=== PATIENT | male | born 1975 | race Caucasian/White ===

== ENCOUNTER 2016-08-10 17:07 | Emergency (ER) | payer OTHER ==
--- NOTE | 2016-08-11 02:36 | ED DISCHARGE INSTRUCTIONS ---
Patient: LUCITA CHANCE General Instructions [facility] VisitID: [id number] [place] [address] 41y, M Registration Date/Time: 08/10/2016 Mood disorder (mild single manic episode with psychosis). INSTRUCTIONS Warnings: GENERAL WARNINGS: Return or contact your physician immediately if your condition worsens or changes unexpectedly, if not improving as expected, or if other problems arise. Specifically return if problem worsens. Follow-up: Follow up with your doctor in about three days even if well. Call for an appointment. Summary of care provided to patient and family. Understanding of the discharge instructions verbalized by patient. (Electronically signed by Sandi Anaya A.R.N.P. 08/10/2016 18:10)
--- NOTE | 2016-08-11 02:36 | ED DISCHARGE INSTRUCTIONS ---
Patient: LUCIAT CHANCE General Instructions [facility] VisitID: [id number] [place] [address] 41y, M Registration Date/Time: 08/10/2016 Mood disorder (mild single manic episode with psychosis). INSTRUCTIONS Warnings: GENERAL WARNINGS: Return or contact your physician immediately if your condition worsens or changes unexpectedly, if not improving as expected, or if other problems arise. Specifically return if problem worsens. Follow-up: Follow up with your doctor in about three days even if well. Call for an appointment. Summary of care provided to patient and family. Understanding of the discharge instructions verbalized by patient. (Electronically signed by Sandi Anaya A.R.N.P. 08/10/2016 18:10)
--- NOTE | 2016-08-11 02:36 | ED NURSING NOTES ---
Clinical Report - Nurses [address] [place] [address] 08/10/2016 17:08 [id number] Triage time 17:12 Aug 10 2016. Acuity: LEVEL 3. Chief Complaint: BIZARRE BEHAVIOR. Alert. No acute distress. GUY COMA SCORE: [place] Coma Scale: 15- eyes open spontaneously (4); best verbal response- oriented x 4 (5); best motor response- obeys commands (6). --17:30 Dunia Galvez R.N. 17:12 08/10/16. BP: 135/90. HR: 89. RR: 18. O2 saturation: 100%. Temp: 98.6 F. --17:30 Dunia Galvez R.N. 17:32 08/10/16. BREATHALYZER: Breathalyzer (0.00). --17:32 Meena Catherine R.N. Weight: 91.1 kg stated. Height/Length: 68 inches Per Patient. BMI: 30.5. --17:28 Dunia Galvez R.N. Medications Cialis Oral. --17:14 Dunia Galvez R.N. OxyCODONE HCl Oral 7.5, 3 x daily. --17:15 Dunia Galvez R.N. Adderall Oral (Tablet 30 mg) 1 tablet, 2x a day. --17:16 Dunia Galvez R.N. ClonazePAM Oral (Tablet Dispersible 1 mg) 1 tablet, 3x a day. --17:16 Dunia Galvez R.N. Mulitvitamin. --17:17 Dunia Galvez R.N. Testosterone Cypionate Intramuscular (Solution 200 mg/mL). --17:19 Dunia Galvez R.N. Allergies Methadone. --17:20 Dunia Galvez R.N. Penicillin. --17:20 Dunia Galvez R.N. History Arrived by EMS, and from a clinic (47). Historian: patient. The patient has had anxiety and sleeping difficulties, describes feelings of depression and has been confused. Has been feeling agitated. Denies having hallucinations. Treatment SEEING EYE DOG TRAINER: None. PAST MEDICAL HX: Psychiatric illness ("perfect" I was a science project). Immunizations: up-to-date. Denies current . SOCIAL HX: Current every day light tobacco smoker (cigarette)- less than 1/2 a pack per day. Occasional alcohol use. History of drug use: marijuana. Recently used drugs yesterday. No infectious disease exposure. SELF HARM ASSESSMENT: A self harm assessment was performed. The patient answered "no" to the question "Do you have thoughts of harming or killing yourself?". FALL RISK ASSESSMENT: Fall risk assessment completed. No fall risk identified. NUTRITIONAL RISK ASSESSMENT: The nutritional risk assessment revealed no deficiencies. FUNCTIONAL ASSESSMENT: Functional assessment: no impairments noted. LEARNING NEEDS ASSESSMENT: The learning needs assessment revealed no barriers. ABUSE ASSESSMENT: Abuse assessment: The patient was asked "Do you feel safe in your home?". SKIN INTEGRITY ASSESSMENT: Skin integrity risk assessment completed. No skin integrity risk identified. --17:30 Dunia Galvez R.N. PROBLEMS: Transgender. Contusion. Fall. Hypertension. Lung Disease. Tetanus Status. --17:21 Dunia Galvez R.N. ADDITIONAL SURGERIES: Dilatation & Curettage. Hysterectomy. Mastectomy. Oophorectomy. Tonsillectomy. --17:21 Dunia Galvez R.N. Interventions ID and allergy band on patient. --17:30 Dunia Galvez R.N. PHYSICAL ASSESSMENT GENERAL / NEURO / PSYCH: Alert. Oriented X 4. Appears in no acute distress. Patient appears calm and cooperative. RESPIRATORY: Respirations not labored. CVS: Normal heart rate and rhythm. GI / : Abdomen nontender. SKIN: Skin is warm and dry. --17:30 Dunia Galvez R.N. NURSING PROGRESS NOTES Patient gowned. Head of bed elevated. Suicide precautions initiated. Family at bedside. Two patient identifiers checked. Call light placed in reach. Side rails up x 1. Bed placed in lowest position. Brakes of bed on. --17:30 Dunia Galvez R.N. DISPOSITION / DISCHARGE Departure time: 18:04 Aug 10 2016. Condition at departure: unchanged. No learning barriers present. The patient was discharged home and accompanied by family. He left the Emergency Department via private vehicle. Family member driving (son). FALL RISK ASSESSMENT: Fall risk assessment completed. No fall risk identified. --18:05 Dunia Galvez R.N. 18:03 08/10/16. BP: 143/80. HR: 97. O2 saturation: 97%. Pain level now: 0/10. --18:05 Dunia Galvez R.N. Locked/Released at 08/10/2016 19:37 by Dunia Galvez R.N.
--- NOTE | 2016-08-11 02:36 | ED MED RECONCILIATION SUMMARY ---
Patient: LUCITA CHANCE Medication Reconciliation Report [facility] VisitID: [id number] [address] [place] [address] 41y, M Registration Date/Time: 08/10/2016 Weight: 91.1 kg Height/Length: 68 in. BMI: 30.5 ALLERGIES: Methadone, Penicillin The patient's Home Medications are listed below: THE FOLLOWING MEDICATIONS NEED TO BE RECONCILED: Adderall Oral (30 mg) 1 tablet, 2x a day Cialis Oral ClonazePAM Oral (1 mg) 1 tablet, 3x a day Mulitvitamin OxyCODONE HCl Oral 7.5, 3 x daily Testosterone Cypionate Intramuscular (200 mg/mL) The source(s) of the original Home Medication information: Not obtained. The following Medications were given to the patient in the Emergency Department: None. The following Medications were prescribed to the patient: None.
--- NOTE | 2016-08-11 02:36 | ED NURSING NOTES ---
Clinical Report - Nurses [address] [place] [address] 08/10/2016 17:08 [id number] Triage time 17:12 Aug 10 2016. Acuity: LEVEL 3. Chief Complaint: BIZARRE BEHAVIOR. Alert. No acute distress. GUY COMA SCORE: [place] Coma Scale: 15- eyes open spontaneously (4); best verbal response- oriented x 4 (5); best motor response- obeys commands (6). --17:30 Dunia Galvez R.N. 17:12 08/10/16. BP: 135/90. HR: 89. RR: 18. O2 saturation: 100%. Temp: 98.6 F. --17:30 Dunia Galvez R.N. 17:32 08/10/16. BREATHALYZER: Breathalyzer (0.00). --17:32 Meena Catherine R.N. Weight: 91.1 kg stated. Height/Length: 68 inches Per Patient. BMI: 30.5. --17:28 Dunia Galvez R.N. Medications Cialis Oral. --17:14 Dunia Galvez R.N. OxyCODONE HCl Oral 7.5, 3 x daily. --17:15 Dunia Galvez R.N. Adderall Oral (Tablet 30 mg) 1 tablet, 2x a day. --17:16 Dunia Galvez R.N. ClonazePAM Oral (Tablet Dispersible 1 mg) 1 tablet, 3x a day. --17:16 Dunia Galvez R.N. Mulitvitamin. --17:17 Dunia Galvez R.N. Testosterone Cypionate Intramuscular (Solution 200 mg/mL). --17:19 Dunia Galvez R.N. Allergies Methadone. --17:20 Dunia Galvez R.N. Penicillin. --17:20 Dunia Galvez R.N. History Arrived by EMS, and from a clinic (47). Historian: patient. The patient has had anxiety and sleeping difficulties, describes feelings of depression and has been confused. Has been feeling agitated. Denies having hallucinations. Treatment HEALTH ASSOCIATE: None. PAST MEDICAL HX: Psychiatric illness ("perfect" I was a science project). Immunizations: up-to-date. Denies current . SOCIAL HX: Current every day light tobacco smoker (cigarette)- less than 1/2 a pack per day. Occasional alcohol use. History of drug use: marijuana. Recently used drugs yesterday. No infectious disease exposure. SELF HARM ASSESSMENT: A self harm assessment was performed. The patient answered "no" to the question "Do you have thoughts of harming or killing yourself?". FALL RISK ASSESSMENT: Fall risk assessment completed. No fall risk identified. NUTRITIONAL RISK ASSESSMENT: The nutritional risk assessment revealed no deficiencies. FUNCTIONAL ASSESSMENT: Functional assessment: no impairments noted. LEARNING NEEDS ASSESSMENT: The learning needs assessment revealed no barriers. ABUSE ASSESSMENT: Abuse assessment: The patient was asked "Do you feel safe in your home?". SKIN INTEGRITY ASSESSMENT: Skin integrity risk assessment completed. No skin integrity risk identified. --17:30 Dunia Galvez R.N. PROBLEMS: Transgender. Contusion. Fall. Hypertension. Lung Disease. Tetanus Status. --17:21 Dunia Galvez R.N. ADDITIONAL SURGERIES: Dilatation & Curettage. Hysterectomy. Mastectomy. Oophorectomy. Tonsillectomy. --17:21 Dunia Galvez R.N. Interventions ID and allergy band on patient. --17:30 Dunia Galvez R.N. PHYSICAL ASSESSMENT GENERAL / NEURO / PSYCH: Alert. Oriented X 4. Appears in no acute distress. Patient appears calm and cooperative. RESPIRATORY: Respirations not labored. CVS: Normal heart rate and rhythm. GI / : Abdomen nontender. SKIN: Skin is warm and dry. --17:30 Dunia Galvez R.N. NURSING PROGRESS NOTES Patient gowned. Head of bed elevated. Suicide precautions initiated. Family at bedside. Two patient identifiers checked. Call light placed in reach. Side rails up x 1. Bed placed in lowest position. Brakes of bed on. --17:30 Dunia Galvez R.N. DISPOSITION / DISCHARGE Departure time: 18:04 Aug 10 2016. Condition at departure: unchanged. No learning barriers present. The patient was discharged home and accompanied by family. He left the Emergency Department via private vehicle. Family member driving (son). FALL RISK ASSESSMENT: Fall risk assessment completed. No fall risk identified. --18:05 Dunia Galvez R.N. 18:03 08/10/16. BP: 143/80. HR: 97. O2 saturation: 97%. Pain level now: 0/10. --18:05 Dunia Galvez R.N. Locked/Released at 08/10/2016 19:37 by Dunia Galvez R.N.
--- NOTE | 2016-08-11 02:36 | ED MAR SUMMARY ---
..... Medication Administration Record [facility] [address] [place], [place] [id number] Patient: LUCITA CHANCE Visit ID: [id number] 41y, M Weight: 91.1 kg Height/Length: 68 in BMI: 30.5 ALLERGIES: Penicillin, Methadone
--- NOTE | 2016-08-11 02:36 | ED CLINICAL REPORT ---
Clinical Report - Physicians/Mid Levels [facility] [address] [place] [address] 08/10/2016 17:08 Patient: LUCITA CHANCE Time Seen: 17:23; initial patient contact, initial documentation, patient care assumed. Arrived- By ambulance. Historian- patient. HISTORY OF PRESENT ILLNESS Chief Complaint: ANXIOUS, DEPRESSED and BEHAVIOR CHANGE and AGITATED. This started unknown. The patient has exhibited a behavior change. but was not found wandering and is compliant with medication. Recent drug use. No recent alcohol consumption. Has not been sleeping. He has had anxiety. Has been depressed and exhibited unusual behavior. No anger, paranoia, delusions, suicidal thoughts or self-injury inflicted. No hallucinations. The symptoms are described as moderate. No injury is present. Similar symptoms previously: Recent medical care: The patient was seen recently by a health care provider. ( was at clinic [employer] [facility], got blood work done, and was sent here for further eval due to pt making odd statements, about hitler, and other things). REVIEW OF SYSTEMS No headache, chest pain, abdominal pain, vomiting or diarrhea. No fever, cough or difficulty breathing. All systems otherwise negative, except as recorded above. PAST HISTORY See nurses notes. ( PROBLEMS: Transgender. Contusion. Fall. Hypertension. Lung Disease. Tetanus Status. --17:21 Dunia Galvez, R.N. ADDITIONAL SURGERIES: Dilatation & Curettage. Hysterectomy. Mastectomy. Oophorectomy. Tonsillectomy. --17:21 Dunia Galvez, R.N.). SOCIAL HISTORY Light tobacco smoker. Occasional alcohol use. History of heavy drug use: marijuana. Recently used drugs yesterday. Has social support. Has place to stay. FAMILY HISTORY Negative. ADDITIONAL NOTES The nursing notes have been reviewed with agreement regarding the chief complaint, HPI, ROS, PMH and patient medications and allergies. PHYSICAL EXAM Vital Signs: 08/10/2016 17:12 BP: 135/90. HR: 89. RR: 18. O2 saturation: 100%. Temp: 98.6 F. Have been reviewed as normal and appear to be correct. Appearance: Alert. No acute distress. Appearance is normal. Anxious. Eyes: Pupils equal, round and reactive to light. Neck: Normal inspection. Neck supple. CVS: Normal heart rate and rhythm. Heart sounds normal. Respiratory: Breath sounds normal. Chest nontender. Back: No tenderness. Skin: Skin warm and dry. Normal skin color. Normal skin turgor. Extremities: Extremities exhibit normal ROM. No lower extremity edema. Psych / Neuro: Oriented X 3. Mood and affect normal. Speech normal. Cognition normal. Thought process and content normal. No apparent hallucinations or delusions. Denies suicidal thoughts. Patient does not express homicidal thoughts. Insight and judgement not normal. The patient does not appear to understand his illness or feel treatment is necessary. He seems unconcerned about his current condition. Cranial nerves normal (as tested). No cerebellar findings. No motor deficit. No sensory deficit. PROGRESS AND PROCEDURES Course of Care: pt not making much sense, fine one second, a&Ox3, and will answer my qtns appropriately, then will laugh, and start talking about something that makes no sense, started talking about how he had government secret about the president, pt denies any thoughts of suicide, self harm or harm to others, and started laughing when I was asking direct medical qtns, pt stated he came because ambulance brought him, and only thing wrong with him was he wasn't sleeping and he was tired. Patient counseled in person regarding the patient's stable condition and diagnosis. 17:43. Differential Diagnosis: Other possible considerations: substance abuse, acute psychosis, bipolar, manic. Above considerations are based on history and physical exam. Differential diagnosis was discussed with patient. Disposition: Discharged home in good and unchanged condition (17:43). Condition: good and stable. CLINICAL IMPRESSION Mood disorder (mild single manic episode with psychosis). INSTRUCTIONS Warnings: GENERAL WARNINGS: Return or contact your physician immediately if your condition worsens or changes unexpectedly, if not improving as expected, or if other problems arise. Specifically return if problem worsens. Follow-up: Follow up with your doctor in about three days even if well. Call for an appointment. Summary of care provided to patient and family. Understanding of the discharge instructions verbalized by patient. (Electronically signed by Sandi Anaya A.R.N.P. 08/10/2016 18:10)
--- NOTE | 2016-08-11 02:36 | ED MED RECONCILIATION SUMMARY ---
Patient: LUCITA CHANCE Medication Reconciliation Report [facility] VisitID: [id number] [address] [place] [address] 41y, M Registration Date/Time: 08/10/2016 Weight: 91.1 kg Height/Length: 68 in. BMI: 30.5 ALLERGIES: Methadone, Penicillin The patient's Home Medications are listed below: THE FOLLOWING MEDICATIONS NEED TO BE RECONCILED: Adderall Oral (30 mg) 1 tablet, 2x a day Cialis Oral ClonazePAM Oral (1 mg) 1 tablet, 3x a day Mulitvitamin OxyCODONE HCl Oral 7.5, 3 x daily Testosterone Cypionate Intramuscular (200 mg/mL) The source(s) of the original Home Medication information: Not obtained. The following Medications were given to the patient in the Emergency Department: None. The following Medications were prescribed to the patient: None.
--- NOTE | 2016-08-11 02:36 | ED MAR SUMMARY ---
..... Medication Administration Record [facility] [address] [place], [place] [id number] Patient: LUCITA CHANCE Visit ID: [id number] 41y, M Weight: 91.1 kg Height/Length: 68 in BMI: 30.5 ALLERGIES: Penicillin, Methadone
== END 2016-08-10 18:04 | disposition home or self-care (01) ==
LOC: ED SRH 17:07
DX: F30.2 Manic episode, severe with psychotic symptoms (principal); I10 Essential (primary) hypertension; Z72.0 Tobacco use